=== PATIENT | female | born 1985 | race Two or more races ===

== ENCOUNTER 2018-02-26 12:54 | Emergency (ER) | payer SELFPAY ==
[~2018-02-26] VITALS: Ht 165.1 cm; Wt 72.6 kg
[2018-02-26 13:47] VITALS: BP 119/7
[2018-02-26 14:10] LABS: BILIRUBIN,URINE NEGATIVE (NEG); CLARITY,URINE CLEAR; COLOR,URINE YELLOW; NITRITE,URINE NEGATIVE (NEG); PH,URINE 5.5; PROTEIN,URINE NEGATIVE (NEG-TRACE); UROBILINOGEN,URINE 0.2 mg/dL (0.2 mg/dL)
[2018-02-26] MEDS ORDERED: ONDANSETRON PF 4 MG/2 ML VIAL. IV ONE (14:15)
[2018-02-26] MEDS ORDERED: fentaNYL PF VIAL 100 MCG/2 ML VIAL IV ONE (14:15)
[2018-02-26] MEDS ORDERED: IV NORMAL SALINE 1000ML BAG 1,000 ML IV ONE (14:15)
[2018-02-26 14:17] LABS: BASO % 0 % (0-3); EOS # 0.1 x10^3/uL (0.0-0.7); EOS % 1 % (0-3); HEMATOCRIT 38.8 % (36.0-47.0); HEMOGLOBIN 13.1 g/dL (12.0-15.5); LYMPH % 10 % (24-48); MEAN CORPUSCULAR HEMOGLOBIN 31 pg (25-35); MEAN CORPUSCULAR HGB CONC 34 g/dL (31-37); MEAN CORPUSCULAR VOLUME 92 fL (79-100); MONO # 0.3 x10^3/uL (0.0-1.1); MONO % 3 % (0-9); NEUT # 9.3 x10^3uL (1.8-7.7); NEUT % 86 % (31-73); PLATELET COUNT 301 x10^3/uL (140-400); RED BLOOD COUNT 4.24 x10^6/uL (3.50-5.40); RED CELL DISTRIBUTION WIDTH 14.2 % (11.5-14.5); WHITE BLOOD COUNT 10.8 x10^3/uL (4.0-11.0)
[2018-02-26 14:24] LABS: BACTERIA,URINE 0 /HPF (0-FEW); RBC,URINE TNTC /HPF (0-2); SQUAMOUS EPITHELIAL CELL,UR MOD /LPF
--- NOTE | 2018-02-26 14:25 | PHYS DOC ---
Past Medical History Past Medical History: No Pertinent History Alcohol Use: Rarely Drug Use: Marijuana Adult General Chief Complaint Chief Complaint: ABDOMINAL PAIN HPI HPI Patient is a 32 year old female who presents with right lower quadrant abdominal pain and nausea. The patient states that this started yesterday. She denies diarrhea, dysuria or fever. She states that she has not had an appetite today due to the nausea. She states that when she vomited yesterday it contained food that she had eaten. She states that she did vomit up some bile this morning. Review of Systems Review of Systems Constitutional: Denies fever or chills [] Eyes: Denies change in visual acuity, redness, or eye pain [] HENT: Denies nasal congestion or sore throat [] Respiratory: Denies cough or shortness of breath [] Cardiovascular: No additional information not addressed in HPI [] GI: See history of present illness : Denies dysuria or hematuria [] Musculoskeletal: Denies back pain or joint pain [] Integument: Denies rash or skin lesions [] Neurologic: Denies headache, focal weakness or sensory changes [] Endocrine: Denies polyuria or polydipsia [] All other systems were reviewed and found to be within normal limits, except as documented in this note. Current Medications Current Medications Current Medications Medications (Trade) Dose Ordered Sig/[facility] Start Time Stop Time Status Last Admin Dose Admin Fentanyl Citrate (Fentanyl 2ml Vial) 50 mcg 1X ONCE 02/26/18 14:15 02/26/18 14:22 DC 02/26/18 14:27 50 MCG Info (CONTRAST GIVEN -- Rx MONITORING) 1 each PRN DAILY PRN 02/26/18 14:30 02/26/18 17:30 DC Iohexol (Omnipaque 240 Mg/ml) 50 ml 1X ONCE 02/26/18 14:30 02/26/18 14:31 DC 02/26/18 14:30 50 ML Iohexol (Omnipaque 300 Mg/ml) 75 ml 1X ONCE 02/26/18 14:30 02/26/18 14:31 DC 02/26/18 14:30 75 ML Ondansetron HCl (Zofran) 4 mg 1X ONCE 02/26/18 14:15 02/26/18 14:22 DC 02/26/18 14:27 4 MG Sodium Chloride 1,000 ml @ 1,000 mls/hr 1X ONCE 02/26/18 14:15 02/26/18 15:14 DC 02/26/18 14:20 1,000 MLS/HR Allergies Allergies Allergies Coded Allergies Type Severity Reaction Last Updated Verified No Known Drug Allergies 02/26/18 No Physical Exam Physical Exam Constitutional: Well developed, well nourished, no acute distress, non-toxic appearance. [] Cardiovascular:Heart rate regular rhythm, no murmur [] Lungs & Thorax: Bilateral breath sounds clear to auscultation [] Abdomen: Bowel sounds normal, soft, RLQ tenderness with mild guarding, no masses , no pulsatile masses. [] Skin: Warm, dry, no erythema, no rash. [] Back: No tenderness, no CVA tenderness. [] Extremities: No tenderness, no cyanosis, no clubbing, ROM intact, no edema. [] Neurologic: Alert and oriented X 3, normal motor function, normal sensory function, no focal deficits noted. [] Psychologic: Affect normal, judgement normal, mood normal. [] Current Patient Data Vital Signs Vital Signs Date Time Temp Pulse Resp B/P (MAP) Pulse Ox O2 Delivery O2 Flow Rate FiO2 02/26/18 14:27 18 99 Room Air 02/26/18 13:47 98.3 109 119/7 (44) 98.3 Lab Values Laboratory Tests Test 02/26/18 13:40 White Blood Count 10.8 x10^3/uL (4.0-11.0) Red Blood Count 4.24 x10^6/uL (3.50-5.40) Hemoglobin 13.1 g/dL (12.0-15.5) Hematocrit 38.8 % (36.0-47.0) Mean Corpuscular Volume 92 fL (79-100) Mean Corpuscular Hemoglobin 31 pg (25-35) Mean Corpuscular Hemoglobin Concent 34 g/dL (31-37) Red Cell Distribution Width 14.2 % (11.5-14.5) Platelet Count 301 x10^3/uL (140-400) Neutrophils (%) (Auto) 86 % (31-73) H Lymphocytes (%) (Auto) 10 % (24-48) L Monocytes (%) (Auto) 3 % (0-9) Eosinophils (%) (Auto) 1 % (0-3) Basophils (%) (Auto) 0 % (0-3) Neutrophils # (Auto) 9.3 x10^3uL (1.8-7.7) H Lymphocytes # (Auto) 1.0 x10^3/uL (1.0-4.8) Monocytes # (Auto) 0.3 x10^3/uL (0.0-1.1) Eosinophils # (Auto) 0.1 x10^3/uL (0.0-0.7) Basophils # (Auto) 0.0 x10^3/uL (0.0-0.2) Segmented Neutrophils % 90 % (35-66) H Band Neutrophils % 1 % (0-9) Lymphocytes % 7 % (24-48) L Monocytes % 1 % (0-10) Eosinophils % 1 % (0-5) Platelet Estimate Adequate (ADEQUATE) Urine Collection Type Unknown Urine Color Yellow Urine Clarity Clear Urine pH 5.5 Urine Specific Selden >=1.030 Urine Protein Negative mg/dL (NEG-TRACE) Urine Glucose (UA) Negative mg/dL (NEG) Urine Ketones (Stick) Negative mg/dL (NEG) Urine Blood Large (NEG) Urine Nitrite Negative (NEG) Urine Bilirubin Negative (NEG) Urine Urobilinogen Dipstick 0.2 mg/dL (0.2 mg/dL) Urine Leukocyte Esterase Negative (NEG) Urine RBC Tntc /HPF (0-2) Urine WBC 1-4 /HPF (0-4) Urine Squamous Epithelial Cells Mod /LPF Urine Bacteria 0 /HPF (0-FEW) Urine Mucus Marked /LPF Sodium Level 143 mmol/L (136-145) Potassium Level 3.3 mmol/L (3.5-5.1) L Chloride Level 105 mmol/L (98-107) Carbon Dioxide Level 26 mmol/L (21-32) Anion Gap 12 (6-14) Blood Urea Nitrogen 9 mg/dL (7-20) Creatinine 0.9 mg/dL (0.6-1.0) Estimated GFR (Cockcroft-Gault) 72.1 BUN/Creatinine Ratio 10 (6-20) Glucose Level 93 mg/dL (70-99) Calcium Level 9.1 mg/dL (8.5-10.1) Total Bilirubin 0.3 mg/dL (0.2-1.0) Aspartate Amino Transferase (AST) 14 U/L (15-37) L Alanine Aminotransferase (ALT) 16 U/L (14-59) Alkaline Phosphatase 88 U/L (46-116) Total Protein 8.3 g/dL (6.4-8.2) H Albumin 4.0 g/dL (3.4-5.0) Albumin/Globulin Ratio 0.9 (1.0-1.7) L Laboratory Tests 02/26/18 13:40 Laboratory Tests 02/26/18 13:40 EKG EKG [] Radiology/Procedures Radiology/Procedures []PATIENT: LAKEISHA MIRELESACCOUNT: [id number]#: [id number] : 1985 LOCATION: ER AGE: 32 SEX: F EXAM STATUS: REG ER ORD. PHYSICIAN: GURU PERALES APRN REASON: RLQ pain PROCEDURE: CT ABD PELV W/ORAL&IV CONTRAST CT of the abdomen and pelvis with contrast, 02/26/2018: HISTORY: Right-sided abdominal pain and nausea Multidetector CT imaging was performed following oral and IV administration of contrast. No hepatic abnormality is seen. The gallbladder is unremarkable. The pancreas shows no abnormality. The spleen is of normal size. No renal mass is identified. The left renal collecting system and ureter are unremarkable. The right renal pelvis is mildly dilated as is the proximal right ureter. The right ureter cannot be clearly traced through the pelvis in this patient. There are several bilateral pelvic calcifications which are probably phleboliths. There is tube-3 mm radiopacity along the posterior wall of the urinary bladder on the right. A tiny calculus lodged at the UVJ level is suspected. The abdominal aorta is unremarkable. No abdominal or pelvic adenopathy is seen. The uterus is retroverted. The ovaries are unremarkable. The bowel loops are not dilated. The cecum is low-lying in the pelvis. The appendix is not clearly visualized. No dilated appendix or pericecal inflammatory process is evident. There is a moderate amount stool in the right colon. No free air or significant free fluid is identified in the abdomen or pelvis. There is bilateral spondylolysis at L3 with mild spondylolisthesis. There is severe associated degenerative disc disease at L3-4 with a vacuum disc phenomena, endplate sclerosis and moderate marginal spurring. IMPRESSION: 1. No CT evidence of acute appendicitis. 2. Possible tiny calculus at the right ureterovesical junction. 3. Bilateral spondylolysis at L3 with mild spondylolisthesis and severe degenerative disc disease at L3-4. PQRS Compliance Statement: One or more of the following individualized dose reduction techniques were utilized for this examination: 1. Automated exposure control 2. Adjustment of the mA and/or kV according to patient size 3. Use of iterative reconstruction technique Electronically signed by: Noel Winter MD (02/26/2018 4:19 PM) [facility] DICTATED and SIGNED BY: NOEL WINTER MD DATE: 02/26/18 3803 Course & Med Decision Making Course & Med Decision Making Pertinent Labs and Imaging studies reviewed. (See chart for details) []Patient was given pain and nausea medication in the emergency department. She is to follow-up with urology and is in agreement with this plan. Dragon Disclaimer Dragon Disclaimer This electronic medical record was generated, in whole or in part, using a voice recognition dictation system. Departure Departure Impression: Primary Impression: Renal calculus Disposition: 01 HOME, SELF-CARE Condition: STABLE Referrals: GEGE RAMIREZ MD Patient Instructions: Kidney Stones Additional Instructions: Take the medication as directed. Do not drive or operate heavy machinery while taking this medication. Follow-up with urology for further evaluation of your kidney stone. If worsening please return to the emergency department. Scripts Tamsulosin Hcl (FLOMAX) 0.4 Mg Cap.er.24h 1 CAP PO DAILY, #10 CAP 0 Refills Prov: GURU PERALES APRN 02/26/18 Oxycodone/Apap 5-325 (PERCOCET 5-325 MG TABLET) 1 Each Tablet 1 TAB PO PRN Q6HRS PRN for PAIN, #14 TAB 0 Refills Prov: GURU PERALES APRN 02/26/18 Ibuprofen (IBUPROFEN) 800 Mg Tablet 800 MG PO PRN Q6HRS PRN for INFLAMMATION, #20 TAB Prov: GURU PERALES APRN 02/26/18 GURU PERALES APRN Feb 26, 2018 14:25
[2018-02-26 14:26] LABS: CALCIUM 9.1 mg/dL (8.5-10.1); CREATININE 0.9 mg/dL (0.6-1.0); GFR 72.1; POTASSIUM 3.3 mmol/L (3.5-5.1)
[2018-02-26 14:30] LABS: ALBUMIN/GLOBULIN RATIO 0.9 (1.0-1.7); TOTAL BILIRUBIN 0.3 mg/dL (0.2-1.0); TOTAL PROTEIN 8.3 g/dL (6.4-8.2)
[2018-02-26] MEDS ORDERED: IOHEXOL 300 MG/ML 100ML VIAL. IV ONE (14:30)
[2018-02-26] MEDS ORDERED: CONTRAST GIVEN. MC PRN (14:30)
[2018-02-26] MEDS ORDERED: IOHEXOL 240 MG/ML 50ML VIAL. PO ONE (14:30)
--- NOTE | 2018-02-26 16:22 | RAD ---
CT of the abdomen and pelvis with contrast, 02/26/2018: HISTORY: Right-sided abdominal pain and nausea Multidetector CT imaging was performed following oral and IV administration of contrast. No hepatic abnormality is seen. The gallbladder is unremarkable. The pancreas shows no abnormality. The spleen is of normal size. No renal mass is identified. The left renal collecting system and ureter are unremarkable. The right renal pelvis is mildly dilated as is the proximal right ureter. The right ureter cannot be clearly traced through the pelvis in this patient. There are several bilateral pelvic calcifications which are probably phleboliths. There is tube-3 mm radiopacity along the posterior wall of the urinary bladder on the right. A tiny calculus lodged at the UVJ level is suspected. The abdominal aorta is unremarkable. No abdominal or pelvic adenopathy is seen. The uterus is retroverted. The ovaries are unremarkable. The bowel loops are not dilated. The cecum is low-lying in the pelvis. The appendix is not clearly visualized. No dilated appendix or pericecal inflammatory process is evident. There is a moderate amount stool in the right colon. No free air or significant free fluid is identified in the abdomen or pelvis. There is bilateral spondylolysis at L3 with mild spondylolisthesis. There is severe associated degenerative disc disease at L3-4 with a vacuum disc phenomena, endplate sclerosis and moderate marginal spurring. IMPRESSION: 1. No CT evidence of acute appendicitis. 2. Possible tiny calculus at the right ureterovesical junction. 3. Bilateral spondylolysis at L3 with mild spondylolisthesis and severe degenerative disc disease at L3-4. PQRS Compliance Statement: One or more of the following individualized dose reduction techniques were utilized for this examination: 1. Automated exposure control 2. Adjustment of the mA and/or kV according to patient size 3. Use of iterative reconstruction technique Electronically signed by: Noel Winter MD (02/26/2018 4:19 PM) [facility]
[2018-02-26 17:15] LABS: % BANDS 1 % (0-9); % EOS 1 % (0-5); % LYMPHS 7 % (24-48); % MONOS 1 % (0-10); % SEGS 90 % (35-66); PLT ESTIMATE ADEQUATE (ADEQUATE)
[2018-02-26] MEDS ORDERED: IBUP-1060 PO (17:16)
[2018-02-26] MEDS ORDERED: TAMS0.4C97 PO (17:16)
[2018-02-26] MEDS ORDERED: OXYC-323 PO (17:16)
== END 2018-02-26 17:30 | disposition home or self-care (01) ==
LOC: ER 12:54
DX: N20.0 Calculus of kidney (principal)
CPT/HCPCS: 36415; 74177; 80053; 81001; 85007; 85025; 96361; 96374; 96375; 99285; J2405; J3010; J7030; Q9966; Q9967